=== PATIENT | female | born 1955 | race Caucasian/White ===

== ENCOUNTER 2016-11-28 07:09 | Outpatient (CLI) | payer SELFPAY | END 2016-11-28 23:00 | LOC: LAB SRH 07:09 | DX: Z01.84 Encounter for antibody response examination (principal) | CPT/HCPCS: 90074; 90229; 90248; 90261; 90851 ==

== ENCOUNTER 2016-12-24 09:41 | Outpatient (CLI) | payer OTHER ==
--- NOTE | 2016-12-24 10:14 | DIAGNOSTIC IMAGING REPORT ---
PROCEDURE: MG BILATERAL SCREENING W/CAD INDICATION: SCREENING TECHNIQUE: Bilateral CC and MLO digital views. COMPARISON: Compared to 04/18/2015, 04/09/2014, and 04/01/2013. FINDINGS: Computer-aided detection applied. Mildly dense parenchymal pattern. There is a 6 mm focal asymmetry in the upper inner right breast. The rest of the breasts are unchanged. IMPRESSION: 1. There is a 6 mm density in the upper inner right breast. While this may represent normal tissue, underlying mass or architectural distortion should be considered. Further mammographic views (true lateral view, CC and MLO spot compression views are recommended. Depending on the results of these further views, ultrasound may be indicated. RESULT CODE: 0- Incomplete; needs additional evaluation. A. A negative report should not delay biopsy if a dominant or clinically suspicious mass is present. 10-15% of cancers are not identified by x-ray. B. A negative report may reinforce clinical impression. C. Adenosis and dense breasts may obscure an underlying neoplasm. D. False positive reports average 6-10%. E.. A yearly screening mammogram is recommended. A reminder letter will be scheduled.
== END 2016-12-24 23:00 ==
LOC: MAM SRH 09:41
DX: Z12.31 Encounter for screening mammogram for malignant neoplasm of breast (principal)

== ENCOUNTER 2017-01-04 14:24 | Outpatient (CLI) | payer OTHER ==
--- NOTE | 2017-01-04 17:44 | DIAGNOSTIC IMAGING REPORT ---
PROCEDURE: MG UNILATERAL DIAG-RT W/CAD INDICATION: DENISTY ON SCREENING TECHNIQUE: Spot compression mammographic views of the right breast in the CC and MLO projection. A direct lateral right breast mammogram using CAD. The patient then went to ultrasound where paulino-scale and color Doppler sonographic imaging of the right breast was performed. COMPARISON: 12/24/2016, 04/18/2015, 04/09/2014 FINDINGS: Mammograms: With focal spot compression in the upper inner right breast, a small focal asymmetry with slight architectural distortion persists. There is only a trace central density which partially dissipates in the MLO view on spot compression. Direct lateral right mammogram is negative. Ultrasound: Sonographically normal tissue despite extensive real time scanning of the upper inner quadrant. No area of shadowing, mass, vascularity, or cyst. IMPRESSION: 1. Persistent focal asymmetry in the upper inner right breast with special mammographic views, but not well seen on the direct lateral mammogram. 2. No evidence of sonographic abnormality. 3. Given the discrepancy between two modalities, 6-month follow-up right breast mammogram for confirmation of stability is recommended. 4. Findings and recommendations were discussed with the patient. RESULT CODE: 3- Probably benign. A. A negative report should not delay biopsy if a dominant or clinically suspicious mass is present. 10-15% of cancers are not identified by x-ray. B. A negative report may reinforce clinical impression. C. Adenosis and dense breasts may obscure an underlying neoplasm. D. False positive reports average 6-10%. E.. A yearly screening mammogram is recommended. A reminder letter will be scheduled.
== END 2017-01-04 23:00 ==
LOC: MAM SRH 14:24
DX: R92.2 Inconclusive mammogram (principal)